=== PATIENT | female | born 1985 | race Two or more races ===

== ENCOUNTER 2023-08-23 19:44 | Emergency (ER) | payer MEDICAID, OTHER ==
[~2023-08-23] VITALS: Ht 157.5 cm; Wt 57.0 kg
[2023-08-23] MEDS: ONDANSETRON HCL 4 MG/2 ML VIAL IV ONE (20:00)
[2023-08-23 20:14] LABS: Basophils # (auto) 0.1 10 ^3/uL (0-0.2); Basophils % (auto) 0.6 % (0.0-2.0); Eosinophils # (auto) 0.2 10 ^3/uL (0-0.8); Eosinophils % (auto) 1.7 % (0.0-7.0); Hematocrit 36.8 % (36.0-46.0); Hemoglobin 12.5 g/dL (12.2-16.2); Lymphocytes # (auto) 2.5 10 ^3/uL (0.4-5.4); Lymphocytes % (auto) 21.8 % (10.0-50.0); Mean Corpuscular Hemoglobin 31.3 pg (28.0-32.0); Mean Corpuscular Hgb Conc. 33.9 g/dL (32.0-36.0); Mean Corpuscular Volume 92.3 fL (80.0-100.0); Monocytes % (auto) 8.5 % (0.0-12.0); Neutrophils # (auto) 7.6 10 ^3/uL (1.6-8.6); Neutrophils % (auto) 67.4 % (37.0-80.0); Red Blood Cells 3.99 10^6/uL (4.0-5.20); Red Cell Distribution Width 13.1 % (11.8-14.3); White Blood Cell 11.3 10^3/uL (4.4-10.8)
[2023-08-23 20:35] LABS: Alanine Aminotransferase 19 U/L (7-40); Alkaline Phosphatase 69 U/L (46-116); Aspartate Aminotransferase 12 U/L (13-40); Calcium 9.9 mg/dL (8.5-10.1); Carbon Dioxide 25 mmol/L (20-30); Chloride 106 mmol/L (98-107)
[2023-08-23 20:36] LABS: Albumin 4.5 g/dL (3.2-4.8); Anion Gap 7 (5-15); BUN/Creatinine Ratio 21.1 (10.0-20.0); Bilirubin, Total 0.2 mg/dL (0.2-1.0); Blood Urea Nitrogen 12 mg/dL (9-23); Glucose 102 mg/dL (74-106); Potassium 4.1 mmol/L (3.5-5.1); Sodium 138 mmol/L (136-145); Total Protein 7.4 g/dL (5.7-8.2)
[2023-08-23] MEDS: KETOROLAC TROMETH 30 MG/ML 1ML VIAL IV ONE (20:37)
[2023-08-23 21:17] LABS: Urine Bacteria None Seen /hpf (None Seen)
[2023-08-23 21:29] LABS: Urine Blood 2+ /uL (Negative); Urine Clarity Clear (Clear); Urine Color Light-Yellow (Yellow); Urine Mucus FEW (None Seen); Urine Protein, UAD Negative (Negative); Urine Urobilinogen Normal (Negative); Urine WBC 2 /hpf (0 - 5); Urine pH 5.5 (5.0-9.0)
[2023-08-23 23:55] VITALS: BP 99/64; PULSE 88; RESP 18; TEMP 97.9; O2SAT 97
[2023-08-24] MEDS ORDERED: TAMS-35 PO (01:00)
[2023-08-24] MEDS ORDERED: IBUP-1456 PO (01:00)
[2023-08-24] MEDS ORDERED: ACET-1304 PO (01:00)
== END 2023-08-24 01:13 | disposition home or self-care (01) ==
LOC: EDBD 19:44 → ER 19:44
DX: N20.1 Calculus of ureter (principal); R10.2 Pelvic and perineal pain; N83.202 Unspecified ovarian cyst, left side; N83.201 Unspecified ovarian cyst, right side; R42 Dizziness and giddiness; Z32.02 Encounter for pregnancy test, result negative
CPT/HCPCS: 36415; 74176; 76856; 80053; 81001; 81025; 84702; 85025; 96374; 99285; J1885

== ENCOUNTER 2024-05-21 09:37 | Inpatient (IN) | payer MEDICAID ==
[~2024-05-21] VITALS: Ht 157.5 cm; Wt 61.5 kg
[~2024-05-21 09:37] MED LIST: ACET-1304 PO; IBUP-1456 PO; TAMS-35 PO
[2024-05-21 10:11] VITALS: PULSE 76; RESP 20; O2SAT 95
--- NOTE | 2024-05-21 10:29 | ED.PDOC ---
General HPI Comments 38 y/o F with PMHX of kidney stones, presents to the ED for CC of left flank pain. Patient states, that she has been experiencing left flank pain and pelvic pain with associated symptoms of nausea and faintness x1day. Patient relays, that she believes symptoms are in association with PMHX of kidney stones; has experienced symptoms in the past. Patient comments on current 12/19 pain. Patient denies dysuria, hematuria, vagina discharge, or back pain. No other symptoms or modifying factors at this time. Chief Complaint: Flank Pain Time Seen by MD: 10:15 Reviewed notes: Nurses Notes, Medications, Allergies Allergies: Coded Allergies: NO KNOWN ALLERGIES (Unverified , 08/23/23) Home Meds Active Scripts Tamsulosin Hcl (Flomax) 0.4 Mg Cap, 1 CAP PO DAILY for 14 Days, #14 CAP 11 Refills Prov:JULIET OMER MD 08/24/23 Ibuprofen (Ibuprofen) 800 Mg Tab, 1 TAB PO Q8HP PRN, #30 TAB 1 Refill Prov:JULIET OMER MD 08/24/23 Acetaminophen (Tylenol Extra Strength) 500 Mg Tab, 1000 MG PO Q6HP PRN, #30 TAB Prov:JULIET OMER MD 08/24/23 Information Source: Patient Mode of Arrival: Ambulatory Severity: Moderate Timing: Days Duration: Since onset Prehospital treatment: None Onset: Spontaneous Symptoms: None History of: Kidney stone Location: (L)Flank Modifying factors: None associated signs and symptoms: Nausea Past Medical History PAST MEDICAL HISTORY: Kidney Stones Surgical History: Denies all surgeries LAUNDRY AID History: No Pertinent LAUNDRY AID History Family History Family History: Unknown Social History Smoker: Non-Smoker Alcohol: Denies ETOH Use Drugs: Denies Drug Use Lives In: Home Constitutional: denies: chills, diaphoresis, fatigue, fever, malaise, sweats, weakness, others EENTM: denies: blurred vision, double vision, ear bleeding, ear discharge, ear drainage, ear pain, ear ringing, eye pain, eye redness, hearing loss, mouth pain, mouth swelling, nasal discharge, nose bleeding, nose congestion, nose pain, photophobia, tearing, throat pain, throat swelling, voice changes, others Respiratory: denies: cough, hemoptysis, orthopnea, SOB at rest, shortness of breath, SOB with excertion, stridor, wheezing, others Cardiovascular: denies: chest pain, dizzy spells, diaphoresis, Dyspnea on exertion, edema, irregular heart beat, left arm pain, lightheadedness, palpitations, PND, syncope, others Gastrointestinal: reports: nausea; denies: abdomen distended, abdominal pain, blood streaked bowels, constipated, diarrhea, dysphagia, difficulty swallowing, hematemesis, melena, poor appetite, poor fluid intake, rectal bleeding, rectal pain, vomiting, others Genitourinary: reports: flank pain, others (pelvic pain); denies: abnormal vagina bleeding, burning, dyspareunia, dysuria, frequency, hematuria, incontinence, pain, , vagina discharge, urgency Neurological: reports: fainting; denies: dizziness, headache, left sided numbness, left sided weakness, numbness, paresthesia, pre-existing deficit, right sided numbness, right sided weakness, seizure, speech problems, tingling, tremors, weakness, others Musculoskeletal: denies: back pain, gout, joint pain, joint swelling, muscle pain, muscle stiffness, neck pain, others Integumetry: denies: bruises, change in color, change in hair/nails, dryness, laceration, lesions, lumps, rash, wounds, others Allergic/Immunocompromised: denies: Difficulty Healing, Frequent Infections, Hives, Itching, others Hematologic/Lymphatic: denies: anemia, blood clots, easy bleeding, easy bruising, swollen glands, others Endocrine: denies: excessive hunger, excessive sweating, excessive thirst, excessive urination, flushing, intolerance to cold, intolerance to heat, unexplained weight gain, unexplained weight loss, others Psychiatric: denies: anxiety, bipolar disorder, depression, hopeless, panic disorder, schizophrenia, sleepless, suicidal, others All Other Systems: Reviewed and Negative Physical Exam General Appearance: Moderate Distress HEENT: Normal ENT Inspection, Pharynx Normal, TMs Normal Neck: Full Range of Motion, Non-Tender, Normal, Normal Inspection Respiratory: Chest Non-Tender, Lungs Clear, No Accessory Muscle Use, No Respiratory Distress, Normal Breath Sounds Cardiovascular: No Edema, No JVD, No Murmur, No Gallop, Normal Peripheral Pulses, Regular Rate/Rhythm Breast Exam: Deferred Gastrointestinal: No Organomegaly, Non Tender, No Pulsatile Mass, Normal Bowel Sounds, Soft Genitalia: Deferred Pelvic: Deferred Rectal: Deferred Extremities: No calf tenderness, Normal capillary refill, No pedal edema Musculoskeletal : Location: Left Extremity Location: Back Apperance: Tenderness: Moderate Neurologic: Alert, 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 Was a procedure done?: No Differential Diagnosis Kidney stone (Female): Cholelithiasis, Pyelonephritis, Urinary obstruction X-Ray, Labs, Meds, VS Vital Signs Date Time Temp Pulse Resp B/P (MAP) Pulse Ox O2 Delivery O2 Flow Rate FiO2 05/21/24 11:26 72 15 115/65 (82) 99 05/21/24 11:22 72 14 115/65 05/21/24 10:35 78 18 129/73 05/21/24 10:11 76 20 95 Room Air* 0 21 05/21/24 10:09 98.0 78 18 129/73 (91) 98 98.0 05/21/24 09:50 98.1 75 20 141/81 (101) 100 Lab Test 05/21/24 10:21 05/21/24 09:54 Range/Units White Blood Count 10.6 4.4-10.8 10^3/uL Red Blood Count 4.33 4.0-5.20 10^6/uL Hemoglobin 13.5 12.2-16.2 g/dL Hematocrit 40.2 36.0-46.0 % Mean Corpuscular Volume 92.9 80.0-100.0 fL Mean Corpuscular Hemoglobin 31.3 28.0-32.0 pg Mean Corpuscular Hemoglobin Concent 33.7 32.0-36.0 g/dL Red Cell Distribution Width 13.0 11.8-14.3 % Platelet Count 273 140-450 10^3/uL Mean Platelet Volume 9.2 6.9-10.8 fL Neutrophils (%) (Auto) 66.1 37.0-80.0 % Lymphocytes (%) (Auto) 25.6 10.0-50.0 % Monocytes (%) (Auto) 5.8 0.0-12.0 % Eosinophils (%) (Auto) 2.0 0.0-7.0 % Basophils (%) (Auto) 0.5 0.0-2.0 % Neutrophils # (Auto) 7.0 1.6-8.6 10 ^3/uL Lymphocytes # (Auto) 2.7 0.4-5.4 10 ^3/uL Monocytes # (Auto) 0.6 0-1.3 10 ^3/uL Eosinophils # (Auto) 0.2 0-0.8 10 ^3/uL Basophils # (Auto) 0.1 0-0.2 10 ^3/uL Nucleated Red Blood Cells 0.0 % Sodium Level 137 136-145 mmol/L Potassium Level 4.1 3.5-5.1 mmol/L Chloride Level 103 98-107 mmol/L Carbon Dioxide Level 24 20-31 mmol/L Anion Gap 10 5-15 Blood Urea Nitrogen 10 9-23 mg/dL Creatinine 0.66 0.550-1.02 mg/dL Glomerular Filtration Rate Calc 117 >90 mL/min BUN/Creatinine Ratio 15.2 10.0-20.0 Serum Glucose 97 74-106 mg/dL Calcium Level 10.1 8.7-10.4 mg/dL Urine Color Yellow Yellow Urine Clarity Turbid H Clear Urine pH 5.0 5.0-9.0 Urine Specific [place] 1.025 1.001-1.035 Urine Protein Trace H Negative Urine Ketones Negative Negative Urine Blood 3+ H Negative /uL Urine Nitrite Negative Negative Urine Bilirubin Negative Negative Urine Urobilinogen Normal Negative mg/dL Urine Leukocyte Esterase Trace Negative /uL Urine RBC 188 0 - 4 /hpf Urine Microscopic WBC 11 H 0-5 /HPF Urine Squamous Epithelial Cells Few <5 /hpf Urine Bacteria Few H None Seen /hpf Urine Mucus Few None Seen Urine Glucose Normal Normal mg/dL Current Medications Medications (Trade) Dose Ordered Sig/Edson Route Start Time Stop Time Status Last Admin Ondansetron HCl (Zofran) 4 mg ONCE ONCE IV 05/21/24 10:15 05/21/24 10:17 DC 05/21/24 10:34 Sodium Chloride 1,000 ml @ 1,000 mls/hr Q1H ONCE IVB 05/21/24 10:15 05/21/24 11:14 DC 05/21/24 10:30 Morphine Sulfate 4 mg ONCE ONCE IV 05/21/24 10:15 05/21/24 10:17 DC 05/21/24 10:35 Ketorolac Tromethamine (Toradol Injection) 30 mg ONCE ONCE IV 05/21/24 10:15 05/21/24 10:17 DC 05/21/24 10:34 CT ABD PEL: IMPRESSION: 1. 5 mm calculus in the distal left ureter. There is mild left hydroureteron ephrosis. 2. There are additional multiple small bilateral renal calculi measuring up 5 mm. There is no right renal hydronephrosis. HS:Y ATED BY: JIGNESH DSOUZA MD DICTATED DATE/TIME: 05/21/241244 SIGNED BY: JIGNESH DSOUZA MD SIGNED DATE/TIME: 05/21/241244 CC: The patient was given morphine 4 mg IV push The patient was given a 1 L bolus of normal saline The patient was given Toradol 30 mg IV push The patient was given Zofran 4 mg IV push The urine test is positive for blood but no infection at this time The CBC and chemistry panel are within normal limits A urology consult will be obtained The patient was being admitted at this time. Images Reviewed?: Images reviewed and evaluated by me Time of 1ST Reevaluation: 10:45 Reevaluation 1ST: Unchanged Patient Education/Counseling: Diagnosis, Treatment Family Education/Counseling: No Family Present Departure 1 Departure Time of Disposition: 14:55 Impression: Primary Impression: Ureterolithiasis Additional Impression: Intractable abdominal pain Disposition: ADMITTED INPATIENT Admit to: Med Surg Condition: Fair Critical Care Note Critical Care Time?: No Stability Stability form required: Yes Unstable for transfer: ED Physician Assesment (Clinical assesment) Heart Score Heart Score: Heart Score Response (Comments) Value History N/A 0 EKG N/A 0 Age N/A 0 Risk Factors N/A 0 Troponin N/A 0 Total 0 I personally scribed for BONNIE DENISE MD ([email or web address]) on 05/21/24 at 10:29. Electronically submitted by Judi Cr ([email or web address]). I personally scribed for BONNIE DENISE MD ([email or web address]) on 05/21/24 at 12:53. Electronically submitted by Judi Cr ([email or web address]). BONNIE DENISE MD May 21, 2024 10:29
[2024-05-21 10:30] LABS: Urine Bacteria FEW /hpf (None Seen); Urine Blood 3+ /uL (Negative); Urine Clarity Turbid (Clear); Urine Color Yellow (Yellow); Urine Mucus FEW (None Seen); Urine Protein, UAD TRACE (Negative); Urine Specific Gravity 1.025 (1.001-1.035); Urine Squamous Epithelial Cell FEW /hpf (<5); Urine Urobilinogen Normal (Negative); Urine WBC 11 /HPF (0-5)
[2024-05-21] MEDS: SODIUM CHLORIDE 0.9% 1,000 ML IVB ONE (10:30)
[2024-05-21] MEDS: ONDANSETRON HCL 4 MG/2 ML VIAL IV ONE (10:34)
[2024-05-21] MEDS: KETOROLAC TROMETH 30 MG/ML 1ML VIAL IV ONE (10:34)
[2024-05-21] MEDS: MORPHINE SULFATE 4 MG/ML SYR/VIAL IV ONE (10:35)
[2024-05-21 10:40] LABS: Basophils # (auto) 0.1 10 ^3/uL (0-0.2); Basophils % (auto) 0.5 % (0.0-2.0); Eosinophils # (auto) 0.2 10 ^3/uL (0-0.8); Hematocrit 40.2 % (36.0-46.0); Hemoglobin 13.5 g/dL (12.2-16.2); Lymphocytes # (auto) 2.7 10 ^3/uL (0.4-5.4); Lymphocytes % (auto) 25.6 % (10.0-50.0); Mean Corpuscular Hemoglobin 31.3 pg (28.0-32.0); Mean Corpuscular Hgb Conc. 33.7 g/dL (32.0-36.0); Mean Corpuscular Volume 92.9 fL (80.0-100.0); Monocytes # (auto) 0.6 10 ^3/uL (0-1.3); Monocytes % (auto) 5.8 % (0.0-12.0); Neutrophils % (auto) 66.1 % (37.0-80.0); Platelet Count (auto) 273 10^3/uL (140-450); Red Blood Cells 4.33 10^6/uL (4.0-5.20); White Blood Cell 10.6 10^3/uL (4.4-10.8)
[2024-05-21 10:58] LABS: Chloride 103 mmol/L (98-107); Potassium 4.1 mmol/L (3.5-5.1); Sodium 137 mmol/L (136-145)
[2024-05-21 10:59] LABS: Anion Gap 10 (5-15); Calcium 10.1 mg/dL (8.7-10.4); Carbon Dioxide 24 mmol/L (20-31)
[2024-05-21 11:04] LABS: BUN/Creatinine Ratio 15.2 (10.0-20.0); Blood Urea Nitrogen 10 mg/dL (9-23); Glucose 97 mg/dL (74-106)
--- NOTE | 2024-05-21 12:47 | DVH ---
CT ABDOMEN AND PELVIS WITHOUT CONTRAST CLINICAL HISTORY: left flank pain TECHNIQUE: Multiple contiguous axial images of the abdomen and pelvis without intravenous contrast. T he images were reformatted degenerate coronal and sagittal reconstructions. All CT scans at this medical facility are performed using dose modulation techniques as appropriate t o a performed exam including the following:Automated exposure control was utilized; adjustment of the MA and/or KV according to patient size; and use of iterative reconstruction technique. Radiation Dose Information: CT Dose: CTDI volume is 6 mGy. Dose-length product is 292 mGy*cm Comparison: CT CT AB PEL WO CON-NO ORAL OR IV on DOS: 08/23/23 FINDINGS: Evaluation of the abdomen and pelvis is limited without intravenous contrast. There is a 5 mm calculus in the distal left ureter. There is mild left hydroureteronephrosis. There are additional multiple small bilateral renal calculi, the largest in the left upper pole measuring 5 mm. There is no right renal hydronephrosis. The liver, gallbladder, pancreas, adrenal glands, and spleen appear within normal limits. There is no gross evidence of abdominal lymphadenopathy. There is no free fluid or free air. The stomach grossly appears unremarkable. The small and large bowel loops demonstrate normal caliber . The appendix is not seen in the right lower quadrant abdomen. There are no secondary signs of acut e appendicitis. The abdominal aorta and IVC appear within normal limits. The bladder appears unremarkable for the degree of distention. Pelvic organ appears within normal rose its. There is no gross evidence of a pelvic mass. There is no free fluid collection. Lung bases are clear. There is no acute osseous abnormality. IMPRESSION: 1. 5 mm calculus in the distal left ureter. There is mild left hydroureteronephrosis. 2. There are additional multiple small bilateral renal calculi measuring up 5 mm. There is no right renal hydronephrosis. HS:Y
--- NOTE | 2024-05-21 14:34 | DVHINCON2 ---
Allergies: Coded Allergies: NO KNOWN ALLERGIES (Unverified , 08/23/23) Home Meds Active Scripts Tamsulosin Hcl (Flomax) 0.4 Mg Cap, 1 CAP PO DAILY for 14 Days, #14 CAP 11 Refills Prov:JULIET OMER MD 08/24/23 Ibuprofen (Ibuprofen) 800 Mg Tab, 1 TAB PO Q8HP PRN, #30 TAB 1 Refill Prov:JULIET OMER MD 08/24/23 Acetaminophen (Tylenol Extra Strength) 500 Mg Tab, 1000 MG PO Q6HP PRN, #30 TAB Prov:JULIET OMER MD 08/24/23 Vital Signs Vital Signs Date Time Temp Pulse Resp B/P (MAP) Pulse Ox O2 Delivery O2 Flow Rate FiO2 05/21/24 11:26 72 15 115/65 (82) 99 05/21/24 10:11 Room Air* 0 21 05/21/24 10:09 98.0 98.0 Labs/Diagnostic Data Labs Test 05/21/24 10:21 05/21/24 09:54 Range/Units White Blood Count 10.6 4.4-10.8 10^3/uL Red Blood Count 4.33 4.0-5.20 10^6/uL Hemoglobin 13.5 12.2-16.2 g/dL Hematocrit 40.2 36.0-46.0 % Mean Corpuscular Volume 92.9 80.0-100.0 fL Mean Corpuscular Hemoglobin 31.3 28.0-32.0 pg Mean Corpuscular Hemoglobin Concent 33.7 32.0-36.0 g/dL Red Cell Distribution Width 13.0 11.8-14.3 % Platelet Count 273 140-450 10^3/uL Mean Platelet Volume 9.2 6.9-10.8 fL Neutrophils (%) (Auto) 66.1 37.0-80.0 % Lymphocytes (%) (Auto) 25.6 10.0-50.0 % Monocytes (%) (Auto) 5.8 0.0-12.0 % Eosinophils (%) (Auto) 2.0 0.0-7.0 % Basophils (%) (Auto) 0.5 0.0-2.0 % Neutrophils # (Auto) 7.0 1.6-8.6 10 ^3/uL Lymphocytes # (Auto) 2.7 0.4-5.4 10 ^3/uL Monocytes # (Auto) 0.6 0-1.3 10 ^3/uL Eosinophils # (Auto) 0.2 0-0.8 10 ^3/uL Basophils # (Auto) 0.1 0-0.2 10 ^3/uL Nucleated Red Blood Cells 0.0 % Sodium Level 137 136-145 mmol/L Potassium Level 4.1 3.5-5.1 mmol/L Chloride Level 103 98-107 mmol/L Carbon Dioxide Level 24 20-31 mmol/L Anion Gap 10 5-15 Blood Urea Nitrogen 10 9-23 mg/dL Creatinine 0.66 0.550-1.02 mg/dL Glomerular Filtration Rate Calc 117 >90 mL/min BUN/Creatinine Ratio 15.2 10.0-20.0 Serum Glucose 97 74-106 mg/dL Calcium Level 10.1 8.7-10.4 mg/dL Urine Color Yellow Yellow Urine Clarity Turbid H Clear Urine pH 5.0 5.0-9.0 Urine Specific [place] 1.025 1.001-1.035 Urine Protein Trace H Negative Urine Ketones Negative Negative Urine Blood 3+ H Negative /uL Urine Nitrite Negative Negative Urine Bilirubin Negative Negative Urine Urobilinogen Normal Negative mg/dL Urine Leukocyte Esterase Trace Negative /uL Urine RBC 188 0 - 4 /hpf Urine Microscopic WBC 11 H 0-5 /HPF Urine Squamous Epithelial Cells Few <5 /hpf Urine Bacteria Few H None Seen /hpf Urine Mucus Few None Seen Urine Glucose Normal Normal mg/dL LEWIS FAUSTIN MD May 21, 2024 14:34
[2024-05-21] MEDS ORDERED: ONDANSETRON HCL 4 MG/2 ML VIAL IV PRN (14:45)
[2024-05-21] MEDS ORDERED: ACETAMINOPHEN 325 MG TAB PO PRN (14:45)
[2024-05-21] MEDS ORDERED: MORPHINE SULFATE INJ 2 MG/ml SYRG IV PRN (14:45)
[2024-05-21] MEDS ORDERED: HYDROcodone-ACET 5/325MG TAB PO PRN (14:45)
--- NOTE | 2024-05-21 14:47 | DVHHP2 ---
History of Present Illness Reason for Visit: Left flank pain since yesterday. History of Present Illness 38-year-old female with a known history of previous kidney stones presented to the hospital with a left flank pain found to have left obstructive uropathy with a 5 mm stone in the left distal ureter with mild hydronephrosis. Patient was denies any fevers chills. Patient does have known history of previous renal stones which did not require any intervention. Patient was denies any dysuria hematuria. Renal/: Other (Kidney stones.) Past Surgical History: None Family History: None Smoke: No ALCOHOL: none Drugs: None Review of Systems Review of Systems Twelve review of system were negative except mentioned above. 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 Labs/Xrays Labs Test 05/21/24 10:21 05/21/24 09:54 Range/Units White Blood Count 10.6 4.4-10.8 10^3/uL Red Blood Count 4.33 4.0-5.20 10^6/uL Hemoglobin 13.5 12.2-16.2 g/dL Hematocrit 40.2 36.0-46.0 % Mean Corpuscular Volume 92.9 80.0-100.0 fL Mean Corpuscular Hemoglobin 31.3 28.0-32.0 pg Mean Corpuscular Hemoglobin Concent 33.7 32.0-36.0 g/dL Red Cell Distribution Width 13.0 11.8-14.3 % Platelet Count 273 140-450 10^3/uL Mean Platelet Volume 9.2 6.9-10.8 fL Neutrophils (%) (Auto) 66.1 37.0-80.0 % Lymphocytes (%) (Auto) 25.6 10.0-50.0 % Monocytes (%) (Auto) 5.8 0.0-12.0 % Eosinophils (%) (Auto) 2.0 0.0-7.0 % Basophils (%) (Auto) 0.5 0.0-2.0 % Neutrophils # (Auto) 7.0 1.6-8.6 10 ^3/uL Lymphocytes # (Auto) 2.7 0.4-5.4 10 ^3/uL Monocytes # (Auto) 0.6 0-1.3 10 ^3/uL Eosinophils # (Auto) 0.2 0-0.8 10 ^3/uL Basophils # (Auto) 0.1 0-0.2 10 ^3/uL Nucleated Red Blood Cells 0.0 % Sodium Level 137 136-145 mmol/L Potassium Level 4.1 3.5-5.1 mmol/L Chloride Level 103 98-107 mmol/L Carbon Dioxide Level 24 20-31 mmol/L Anion Gap 10 5-15 Blood Urea Nitrogen 10 9-23 mg/dL Creatinine 0.66 0.550-1.02 mg/dL Glomerular Filtration Rate Calc 117 >90 mL/min BUN/Creatinine Ratio 15.2 10.0-20.0 Serum Glucose 97 74-106 mg/dL Calcium Level 10.1 8.7-10.4 mg/dL Urine Color Yellow Yellow Urine Clarity Turbid H Clear Urine pH 5.0 5.0-9.0 Urine Specific [place] 1.025 1.001-1.035 Urine Protein Trace H Negative Urine Ketones Negative Negative Urine Blood 3+ H Negative /uL Urine Nitrite Negative Negative Urine Bilirubin Negative Negative Urine Urobilinogen Normal Negative mg/dL Urine Leukocyte Esterase Trace Negative /uL Urine RBC 188 0 - 4 /hpf Urine Microscopic WBC 11 H 0-5 /HPF Urine Squamous Epithelial Cells Few <5 /hpf Urine Bacteria Few H None Seen /hpf Urine Mucus Few None Seen Urine Glucose Normal Normal mg/dL Assessment/Plan Assessment/Plan 38-year-old female with a known history of kidney stones presented to the hospital with left flank pain found to have 1. Left obstructive uropathy with 5 mm distal ureter stone with mild hydronephrosis 2. Acute cystitis with hematuria 3. Bilateral renal stones with a previous history of kidney stones -full liquid diet, IV fluids, add Flomax, urology consultation.- Follow up urine culture, IV antibiotic. Plan discussed with: Patient My Orders Orders - LEWIS FAUSTIN MD Procedure Category Date Status Time Admit ADMIT 05/21/24 Transmitted 14:37 Code Status CODE 05/21/24 Transmitted 14:37 Full Liq Diet DIET 05/21/24 Transmitted Dinner Sodium Chloride 0.9% PHA 05/21/24 Logged 14:45 Hydrocodone-Acet PHA 05/21/24 Logged 5/325mg Tab ([place] 14:45 Ondansetron Hcl PHA 05/21/24 Logged (Zofran) 14:45 Complete Blood Count LAB 05/22/24 Verified 04:00 Comprehensive LAB 05/22/24 Verified Metabolic Panel 04:00 Condition: Stable TALI 05/21/24 In Process 14:37 Acetaminophen Tablet PHA 05/21/24 Logged (Tylenol Tablet) 14:45 Morphine Sulfate PHA 05/21/24 Logged Injection 14:45 Tamsulosin PHA 05/21/24 Logged Hydrochloride (Flomax) 18:00 Ceftriaxone 1gm/50ml PHA 05/22/24 Logged D5w (Rocephin) 09:00 * Urology Consult CONS 05/21/24 Transmitted 14:41 Date of Service: May 21, 2024 Billing Provider: LEWIS FAUSTIN MD Common Visit Codes: NOT BILLABLE LEWIS FAUSTIN MD May 21, 2024 14:47
[2024-05-21 17:03] VITALS: BP 91/54; PULSE 75; TEMP 98.3; O2SAT 98
[2024-05-21] MEDS: SODIUM CHLORIDE 0.9% 1,000 ML IV SCH (17:06)
[2024-05-21] MEDS: TAMSULOSIN HYDROCHLORIDE 0.4 MG CAP PO SCH (17:19)
--- NOTE | 2024-05-21 18:32 | DVHINCON2 ---
Date of service: May 21, 2024 Referring Physician Hospitalist Reason for Consultation Left flank pain History of Present Illness 38 y/o F with PMHX of kidney stones, presents to the ED for CC of left flank pain. Patient states, that she has been experiencing left flank pain and pelvic pain with associated symptoms of nausea and faintness x1day. Patient relays, that she believes symptoms are in association with PMHX of kidney stones; has experienced symptoms in the past. Patient comments on current 12/19 pain. Patient denies dysuria, hematuria, vagina discharge, or back pain. No other symptoms or modifying factors at this time. Chief Complaint: Flank Pain Reviewed notes: Nurses Notes, Medications, Allergies Allergies: Coded Allergies: NO KNOWN ALLERGIES (Unverified , 08/23/23) Home Meds Active Scripts Tamsulosin Hcl (Flomax) 0.4 Mg Cap, 1 CAP PO DAILY for 14 Days, #14 CAP 11 Refills Prov:JULIET OMER MD 08/24/23 Ibuprofen (Ibuprofen) 800 Mg Tab, 1 TAB PO Q8HP PRN, #30 TAB 1 Refill Prov:JULIET OMER MD 08/24/23 Acetaminophen (Tylenol Extra Strength) 500 Mg Tab, 1000 MG PO Q6HP PRN, #30 TAB Prov:JULIET OMER MD 08/24/23 Information Source: Patient Mode of Arrival: Ambulatory Severity: Moderate Timing: Days Duration: Since onset Prehospital treatment: None Onset: Spontaneous Symptoms: None History of: Kidney stone Location: (L)Flank Modifying factors: None associated signs and symptoms: Nausea Past Medical History Kidney Stones Past Surgical History Denies all surgeries SENIOR JAVA ARCHITECT History: No Pertinent SENIOR JAVA ARCHITECT History Allergies: Coded Allergies: NO KNOWN ALLERGIES (Unverified , 08/23/23) Home Meds Active Scripts Tamsulosin Hcl (Flomax) 0.4 Mg Cap, 1 CAP PO DAILY for 14 Days, #14 CAP 11 Refills Prov:JULIET OMER MD 08/24/23 Ibuprofen (Ibuprofen) 800 Mg Tab, 1 TAB PO Q8HP PRN, #30 TAB 1 Refill Prov:JULIET OMER MD 08/24/23 Acetaminophen (Tylenol Extra Strength) 500 Mg Tab, 1000 MG PO Q6HP PRN, #30 TAB Prov:JULIET OMER MD 08/24/23 Current Medications Current Medications Medications (Trade) Dose Ordered Sig/Edson Route PRN Reason Start Time Stop Time Status Last Admin Sodium Chloride 1,000 ml @ 120 mls/hr Q8H20M IV 05/21/24 14:45 05/21/24 17:06 Acetaminophen/ Hydrocodone Bitart ([place] 5/325MG Tab) 1 tab Q4HP PRN PO MODERATE PAIN (4-6 PAIN SCALE) 05/21/24 14:45 Ondansetron HCl (Zofran) 4 mg Q4HP PRN IV NAUSEA / VOMITING 05/21/24 14:45 Acetaminophen (Tylenol Tablet) 650 mg Q6HP PRN PO PAIN SCALE 1-3 OR TEMP>100.4 05/21/24 14:45 Morphine Sulfate 2 mg Q4HPRN PRN IV SEVERE PAIN (7-10 PAIN SCALE) 05/21/24 14:45 Tamsulosin HCl (Flomax) 0.4 mg QPM PO 05/21/24 18:00 05/21/24 17:19 Ceftriaxone Sodium 50 ml @ 100 mls/hr DAILY@09 IV 05/22/24 09:00 Review of Systems Constitutional: denies: chills, diaphoresis, fatigue, fever, malaise, sweats, weakness, others EENTM: denies: blurred vision, double vision, ear bleeding, ear discharge, ear drainage, ear pain, ear ringing, eye pain, eye redness, hearing loss, mouth pain, mouth swelling, nasal discharge, nose bleeding, nose congestion, nose pain, photophobia, tearing, throat pain, throat swelling, voice changes, others Respiratory: denies: cough, hemoptysis, orthopnea, SOB at rest, shortness of breath, SOB with excertion, stridor, wheezing, others Cardiovascular: denies: chest pain, dizzy spells, diaphoresis, Dyspnea on exertion, edema, irregular heart beat, left arm pain, lightheadedness, palpitations, PND, syncope, others Gastrointestinal: reports: nausea; denies: abdomen distended, abdominal pain, blood streaked bowels, constipated, diarrhea, dysphagia, difficulty swallowing, hematemesis, melena, poor appetite, poor fluid intake, rectal bleeding, rectal pain, vomiting, others Genitourinary: reports: flank pain, others (pelvic pain); denies: abnormal vagina bleeding, burning, dyspareunia, dysuria, frequency, hematuria, incontinence, pain, , vagina discharge, urgency Neurological: reports: fainting; denies: dizziness, headache, left sided numbness, left sided weakness, numbness, paresthesia, pre-existing deficit, right sided numbness, right sided weakness, seizure, speech problems, tingling, tremors, weakness, others Musculoskeletal: denies: back pain, gout, joint pain, joint swelling, muscle pain, muscle stiffness, neck pain, others Integumetry: denies: bruises, change in color, change in hair/nails, dryness, laceration, lesions, lumps, rash, wounds, others Allergic/Immunocompromised: denies: Difficulty Healing, Frequent Infections, Hives, Itching, others Hematologic/Lymphatic: denies: anemia, blood clots, easy bleeding, easy bruising, swollen glands, others Endocrine: denies: excessive hunger, excessive sweating, excessive thirst, excessive urination, flushing, intolerance to cold, intolerance to heat, unexplained weight gain, unexplained weight loss, others Psychiatric: denies: anxiety, bipolar disorder, depression, hopeless, panic disorder, schizophrenia, sleepless, suicidal, others All Other Systems: Reviewed and Negative Vital Signs Vital Signs Date Time Temp Pulse Resp B/P (MAP) Pulse Ox O2 Delivery O2 Flow Rate FiO2 05/21/24 17:03 98.3 75 91/54 (66) 98 98.3 05/21/24 11:26 15 05/21/24 10:11 Room Air* 0 21 Physical Exam General Appearance: Moderate Distress HEENT: Normal ENT Inspection, Pharynx Normal, TMs Normal Neck: Full Range of Motion, Non-Tender, Normal, Normal Inspection Respiratory: Chest Non-Tender, Lungs Clear, No Accessory Muscle Use, No Respiratory Distress, Normal Breath Sounds Cardiovascular: No Edema, No JVD, No Murmur, No Gallop, Normal Peripheral Pulses, Regular Rate/Rhythm Breast Exam: Deferred Gastrointestinal: No Organomegaly, Non Tender, No Pulsatile Mass, Normal Bowel Sounds, Soft Genitalia: Deferred Extremities: No calf tenderness, Normal capillary refill, No pedal edema Musculoskeletal : Location: Left Extremity Location: Back Apperance: Tenderness: Moderate Neurologic: Alert, security tech II-XII nml as Tested, No Motor Deficits, Normal Affect, Normal Mood, No Sensory Deficits Cerebellar Function: Normal Reflexes: Normal Skin: Dry, Normal Color, Warm Lymphatic: No Adenopathy Labs/Diagnostic Data Labs Test 05/21/24 10:21 05/21/24 09:54 Range/Units White Blood Count 10.6 4.4-10.8 10^3/uL Red Blood Count 4.33 4.0-5.20 10^6/uL Hemoglobin 13.5 12.2-16.2 g/dL Hematocrit 40.2 36.0-46.0 % Mean Corpuscular Volume 92.9 80.0-100.0 fL Mean Corpuscular Hemoglobin 31.3 28.0-32.0 pg Mean Corpuscular Hemoglobin Concent 33.7 32.0-36.0 g/dL Red Cell Distribution Width 13.0 11.8-14.3 % Platelet Count 273 140-450 10^3/uL Mean Platelet Volume 9.2 6.9-10.8 fL Neutrophils (%) (Auto) 66.1 37.0-80.0 % Lymphocytes (%) (Auto) 25.6 10.0-50.0 % Monocytes (%) (Auto) 5.8 0.0-12.0 % Eosinophils (%) (Auto) 2.0 0.0-7.0 % Basophils (%) (Auto) 0.5 0.0-2.0 % Neutrophils # (Auto) 7.0 1.6-8.6 10 ^3/uL Lymphocytes # (Auto) 2.7 0.4-5.4 10 ^3/uL Monocytes # (Auto) 0.6 0-1.3 10 ^3/uL Eosinophils # (Auto) 0.2 0-0.8 10 ^3/uL Basophils # (Auto) 0.1 0-0.2 10 ^3/uL Nucleated Red Blood Cells 0.0 % Sodium Level 137 136-145 mmol/L Potassium Level 4.1 3.5-5.1 mmol/L Chloride Level 103 98-107 mmol/L Carbon Dioxide Level 24 20-31 mmol/L Anion Gap 10 5-15 Blood Urea Nitrogen 10 9-23 mg/dL Creatinine 0.66 0.550-1.02 mg/dL Glomerular Filtration Rate Calc 117 >90 mL/min BUN/Creatinine Ratio 15.2 10.0-20.0 Serum Glucose 97 74-106 mg/dL Calcium Level 10.1 8.7-10.4 mg/dL Urine Color Yellow Yellow Urine Clarity Turbid H Clear Urine pH 5.0 5.0-9.0 Urine Specific [place] 1.025 1.001-1.035 Urine Protein Trace H Negative Urine Ketones Negative Negative Urine Blood 3+ H Negative /uL Urine Nitrite Negative Negative Urine Bilirubin Negative Negative Urine Urobilinogen Normal Negative mg/dL Urine Leukocyte Esterase Trace Negative /uL Urine RBC 188 0 - 4 /hpf Urine Microscopic WBC 11 H 0-5 /HPF Urine Squamous Epithelial Cells Few <5 /hpf Urine Bacteria Few H None Seen /hpf Urine Mucus Few None Seen Urine Glucose Normal Normal mg/dL PATIENT: KEENAN GOLDBERGCCT: [id number] UNIT: [id number] : 1985 LOC: ER ROOM / BED: / AGE / SEX: 38 / F ADM STATUS: REG ER SERVICE 1015 ORDERING PHYSICIAN: BONNIE DENISE MD PROCEDURE(s): ABPL - CT AB PEL WO CON-NO ORAL OR IV REASON: left flank pain ORDER NUMBER(s): [id number], ACCESSION NUMBER(s): [id number] CT ABDOMEN AND PELVIS WITHOUT CONTRAST CLINICAL HISTORY: left flank pain TECHNIQUE: Multiple contiguous axial images of the abdomen and pelvis without intravenous contrast. The images were reformatted degenerate coronal and sagittal reconstructions. All CT scans at this medical facility are performed using dose modulation techniques as appropriate to a performed exam including the following:Automated exposure control was utilized; adjustment of the MA and/or KV according to patient size; and use of iterative reconstruction technique. Radiation Dose Information: CT Dose: CTDI volume is 6 mGy. Dose-length product is 292 mGy*cm Comparison: CT CT AB PEL WO CON-NO ORAL OR IV on DOS: 08/23/23 FINDINGS: Evaluation of the abdomen and pelvis is limited without intravenous contrast. There is a 5 mm calculus in the distal left ureter. There is mild left hydroureteronephrosis. There are additional multiple small bilateral renal calculi, the largest in the left upper pole measuring 5 mm. There is no right renal hydronephrosis. The liver, gallbladder, pancreas, adrenal glands, and spleen appear within normal limits. There is no gross evidence of abdominal lymphadenopathy. There is no free fluid or free air. The stomach grossly appears unremarkable. The small and large bowel loops demonstrate normal caliber. The appendix is not seen in the right lower quadrant abdomen. There are no secondary signs of acute appendicitis. The abdominal aorta and IVC appear within normal limits. The bladder appears unremarkable for the degree of distention. Pelvic organ appears within normal limits. There is no gross evidence of a pelvic mass. There is no free fluid collection. Lung bases are clear. There is no acute osseous abnormality. IMPRESSION: 1. 5 mm calculus in the distal left ureter. There is mild left hydroureteronephrosis. 2. There are additional multiple small bilateral renal calculi measuring up 5 mm. There is no right renal hydronephrosis. HS:Y ATED BY: JIGNESH DSOUZA MD DICTATED DATE/TIME: 05/21/24 1245 SIGNED BY: JIGNESH DSOUZA MD SIGNED DATE/TIME: 05/21/24 1245 CC: Assessment Bilateral multiple renal stones Left distal ureteral stone, 5 mm Mild left hydronephrosis Left flank pain Plan/Recommendation Expulsive measures Pain control Outpatient ESWL, possible stent TBA Plan discussed with: Patient, Other WILLIAM BUI MD May 21, 2024 18:32
[2024-05-21 19:35] VITALS: BP 110/58; PULSE 70; RESP 18; TEMP 98; O2SAT 99
[2024-05-21 19:50] VITALS: BP 105/68; PULSE 74; RESP 20; TEMP 98.5; O2SAT 98
[2024-05-21] MEDS: MANNITOL FTV 25% 12.5 GM/50 ML 50 ML IV ONE (21:00)
[2024-05-22 05:00] VITALS: BP 95/53; PULSE 84; RESP 20; TEMP 97.2; O2SAT 97
[2024-05-22 07:17] LABS: Basophils # (auto) 0.1 10 ^3/uL (0-0.2); Basophils % (auto) 0.6 % (0.0-2.0); Eosinophils # (auto) 0.3 10 ^3/uL (0-0.8); Eosinophils % (auto) 3.4 % (0.0-7.0); Hematocrit 33.5 % (36.0-46.0); Hemoglobin 11.2 g/dL (12.2-16.2); Lymphocytes # (auto) 3.2 10 ^3/uL (0.4-5.4); Lymphocytes % (auto) 36.4 % (10.0-50.0); Mean Corpuscular Hemoglobin 31.3 pg (28.0-32.0); Mean Corpuscular Hgb Conc. 33.4 g/dL (32.0-36.0); Mean Corpuscular Volume 93.6 fL (80.0-100.0); Monocytes # (auto) 0.7 10 ^3/uL (0-1.3); Monocytes % (auto) 7.5 % (0.0-12.0); Neutrophils # (auto) 4.6 10 ^3/uL (1.6-8.6); Neutrophils % (auto) 52.1 % (37.0-80.0); Nucleated Red Blood Cells % 0.2 %; Platelet Count (auto) 224 10^3/uL (140-450); Red Blood Cells 3.58 10^6/uL (4.0-5.20); Red Cell Distribution Width 12.9 % (11.8-14.3); White Blood Cell 8.9 10^3/uL (4.4-10.8)
[2024-05-22 07:29] LABS: Alanine Aminotransferase 17 U/L (7-40); Albumin 3.7 g/dL (3.2-4.8); Alkaline Phosphatase 50 U/L (46-116); Anion Gap 9 (5-15); BUN/Creatinine Ratio 15.4 (10.0-20.0); Carbon Dioxide 22 mmol/L (20-31); Glucose 94 mg/dL (74-106); Potassium 4.1 mmol/L (3.5-5.1); Sodium 141 mmol/L (136-145); Total Protein 6.1 g/dL (5.7-8.2)
[2024-05-22 07:30] LABS: Bilirubin, Total 0.5 mg/dL (0.2-1.0)
[2024-05-22 07:32] LABS: Aspartate Aminotransferase 12 U/L (13-40); Blood Urea Nitrogen 8 mg/dL (9-23); Chloride 110 mmol/L (98-107)
[2024-05-22 09:00] VITALS: BP 104/57; PULSE 73; RESP 18; TEMP 98.2; O2SAT 99
[2024-05-22] MEDS: cefTRIAXone 1GM/50ML D5W 50 ML IV SCH (11:28)
[2024-05-22 13:00] VITALS: BP 100/54; PULSE 76; RESP 18; TEMP 97.7; O2SAT 100
--- NOTE | 2024-05-22 14:50 | DVHDS2 ---
Discharge Summary Date of Admission May 21, 2024 at 14:37 Date of Discharge: May 22, 2024 Labs/Diagnostic Data: Laboratory Results Test 05/22/24 06:21 05/21/24 09:54 White Blood Count 8.9 10^3/uL (4.4-10.8) Red Blood Count 3.58 10^6/uL (4.0-5.20) Hemoglobin 11.2 g/dL (12.2-16.2) Hematocrit 33.5 % (36.0-46.0) Mean Corpuscular Volume 93.6 fL (80.0-100.0) Mean Corpuscular Hemoglobin 31.3 pg (28.0-32.0) Mean Corpuscular Hemoglobin Concent 33.4 g/dL (32.0-36.0) Red Cell Distribution Width 12.9 % (11.8-14.3) Platelet Count 224 10^3/uL (140-450) Mean Platelet Volume 9.5 fL (6.9-10.8) Neutrophils (%) (Auto) 52.1 % (37.0-80.0) Lymphocytes (%) (Auto) 36.4 % (10.0-50.0) Monocytes (%) (Auto) 7.5 % (0.0-12.0) Eosinophils (%) (Auto) 3.4 % (0.0-7.0) Basophils (%) (Auto) 0.6 % (0.0-2.0) Neutrophils # (Auto) 4.6 10 ^3/uL (1.6-8.6) Lymphocytes # (Auto) 3.2 10 ^3/uL (0.4-5.4) Monocytes # (Auto) 0.7 10 ^3/uL (0-1.3) Eosinophils # (Auto) 0.3 10 ^3/uL (0-0.8) Basophils # (Auto) 0.1 10 ^3/uL (0-0.2) Nucleated Red Blood Cells 0.2 % Sodium Level 141 mmol/L (136-145) Potassium Level 4.1 mmol/L (3.5-5.1) Chloride Level 110 mmol/L (98-107) Carbon Dioxide Level 22 mmol/L (20-31) Anion Gap 9 (5-15) Blood Urea Nitrogen 8 mg/dL (9-23) Creatinine 0.52 mg/dL (0.550-1.02) Glomerular Filtration Rate Calc 123 mL/min (>90) BUN/Creatinine Ratio 15.4 (10.0-20.0) Serum Glucose 94 mg/dL (74-106) Calcium Level 9.0 mg/dL (8.7-10.4) Total Bilirubin 0.5 mg/dL (0.2-1.0) Aspartate Amino Transferase (AST) 12 U/L (13-40) Alanine Aminotransferase (ALT) 17 U/L (7-40) Alkaline Phosphatase 50 U/L (46-116) Total Protein 6.1 g/dL (5.7-8.2) Albumin 3.7 g/dL (3.2-4.8) Urine Color Yellow (Yellow) Urine Clarity Turbid (Clear) Urine pH 5.0 (5.0-9.0) Urine Specific [place] 1.025 (1.001-1.035) Urine Protein Trace (Negative) Urine Ketones Negative (Negative) Urine Blood 3+ /uL (Negative) Urine Nitrite Negative (Negative) Urine Bilirubin Negative (Negative) Urine Urobilinogen Normal mg/dL (Negative) Urine Leukocyte Esterase Trace /uL (Negative) Urine RBC 188 /hpf (0 - 4) Urine Microscopic WBC 11 /HPF (0-5) Urine Squamous Epithelial Cells Few /hpf (<5) Urine Bacteria Few /hpf (None Seen) Urine Mucus Few (None Seen) Urine Glucose Normal mg/dL (Normal) Other Laboratory Tests 05/22/24 06:21 Brief Hx & Hospital Course: 38-year-old female with a known history of kidney stones presented to the hospital with left flank pain found to have left obstructive uropathy with a 5 mm ureter stone with mild hydronephrosis. Patient also has a acute cystitis with hematuria. Patient was treated with pain meds. Patient currently cleared by Urology to be discharged with close follow up as an outpatient. The patient was recommended to return to ER if there is any worsening pain or any concern or including fever chills are difficult urination or painful urination. Condition at Discharge: Stable Final Diagnosis/Problems List 38-year-old female with a known history of kidney stones presented to the hospital with left flank pain found to have 1. Left obstructive uropathy with 5 mm distal ureter stone with mild hydronephrosis 2. Acute cystitis with hematuria 3. Bilateral renal stones with a previous history of kidney stones Discharge Disposition: Home SNF Discharge Will this Physician continue t: No Discharge Instruct/Medications New Medications: Cephalexin Monohydrate (Cephalexin) 500 Mg Cap 1 CAP PO TID for 5 Days, #15 CAP Hydrocodone-Acetaminophen (Hydrocodone Bitartrate/AC 5-325 mg) 1 Tab Tab 1 TAB PO Q8HP PRN, #10 TAB Continued Medications: Tamsulosin Hcl (Flomax) 0.4 Mg Cap 1 CAP PO DAILY for 14 Days, #14 CAP 11 Refills Discontinued Medications: Acetaminophen (Tylenol Extra Strength) 500 Mg Tab 1000 MG PO Q6HP PRN, #30 TAB Ibuprofen (Ibuprofen) 800 Mg Tab 1 TAB PO Q8HP PRN, #30 TAB 1 Refill Discharge Statement: "Patient was advised to return to the ER or call 911 if any headaches, dizziness, shortness of breath, chest pain, abdominal pain, bleeding, fevers, or worsening of medical condition. Patient was counseled about treatment plan, medications, possible side effects, patientverbalized understanding. All questions were answered to the best of my ability. This discharge took greater then 30 minutes in planning, reviewing documentation, counseling the patient, and discussing with other team members." ASSESSMENT ASSESSMENT Assessment Date of Service: May 22, 2024 Billing Provider: LEWIS FAUSTIN MD Common Visit Codes: NOT BILLABLE LEWIS FAUSTIN MD May 22, 2024 14:50
[2024-05-22] MEDS ORDERED: HYDR-4902 PO (14:52)
[2024-05-22] MEDS ORDERED: CEPH500C PO (14:52)
[2024-05-22 16:31] VITALS: BP 100/54; PULSE 76; RESP 18; TEMP 97.7; O2SAT 100
== END 2024-05-22 17:05 | disposition home or self-care (01) | DRG 463 ==
LOC: ER 09:37 → OVERFLOW 14:37 → EAST 19:50
PROVIDERS: ADMIT Internal Medicine; ATTEND Internal Medicine
DX: N13.6 Pyonephrosis (principal); Z87.442 Personal history of urinary calculi
CPT/HCPCS: 36415; 74176; 80048; 80053; 81001; 85025; 96365; 96375; G0378; J1885; J2405

== ENCOUNTER 2025-02-16 09:30 | Emergency (ER) | payer MEDICAID ==
[~2025-02-16] VITALS: Ht 157.5 cm; Wt 57.4 kg
[~2025-02-16 09:30] MED LIST changes: -ACET-1304 PO; +CEPH500C PO; +HYDR-4902 PO; -IBUP-1456 PO
--- NOTE | 2025-02-16 10:33 | ED.PDOC ---
General HPI Comments 39 year old female presenting to the ED with chief complaint of flank pain. Patient reports that she has been experiencing right sided flank pain since today with associated mild dysuria. Patient relays that she has history of kidney stones and it feels like before. Patient denies any hematuria, fever, chills, or abdominal pain. Chief Complaint: Flank Pain Time Seen by MD: 10:18 Reviewed notes: Nurses Notes, Medications, Allergies Allergies: Coded Allergies: NO KNOWN ALLERGIES (Unverified , 08/23/23) Home Meds Active Scripts Hydrocodone-Acetaminophen (Hydrocodone Bitartrate/AC 5-325 mg) 1 Tab Tab, 1 TAB PO Q8HP PRN, #10 TAB Prov:LEWIS FAUSTIN MD 05/22/24 Cephalexin Monohydrate (Cephalexin) 500 Mg Cap, 1 CAP PO TID for 5 Days, #15 CAP Prov:LEWIS FAUSTIN MD 05/22/24 Tamsulosin Hcl (Flomax) 0.4 Mg Cap, 1 CAP PO DAILY for 14 Days, #14 CAP 11 Refills Prov:JULIET OMER MD 08/24/23 Information Source: Patient Mode of Arrival: Ambulatory Severity: Moderate Timing: Days Duration: Since onset Prehospital treatment: None Onset: Spontaneous Symptoms: None History of: Kidney stone Location: (R) Flank Modifying factors: None associated signs and symptoms: Flank Pain Past Medical History PAST MEDICAL HISTORY: Kidney Stones Surgical History: Denies all surgeries OVERNIGHT HOUSEPERSON History: No Pertinent OVERNIGHT HOUSEPERSON History Family History Family History: Reviewed,noncontributory to illness Social History Smoker: Non-Smoker Alcohol: Denies ETOH Use Drugs: Denies Drug Use Lives In: Home Constitutional: denies: chills, diaphoresis, fatigue, fever, malaise, sweats, weakness, others EENTM: denies: blurred vision, double vision, ear bleeding, ear discharge, ear drainage, ear pain, ear ringing, eye pain, eye redness, hearing loss, mouth pain, mouth swelling, nasal discharge, nose bleeding, nose congestion, nose pain, photophobia, tearing, throat pain, throat swelling, voice changes, others Respiratory: denies: cough, hemoptysis, orthopnea, SOB at rest, shortness of breath, SOB with excertion, stridor, wheezing, others Cardiovascular: denies: chest pain, dizzy spells, diaphoresis, Dyspnea on exertion, edema, irregular heart beat, left arm pain, lightheadedness, palpitations, PND, syncope, others Gastrointestinal: denies: abdomen distended, abdominal pain, blood streaked bowels, constipated, diarrhea, dysphagia, difficulty swallowing, hematemesis, melena, nausea, poor appetite, poor fluid intake, rectal bleeding, rectal pain, vomiting, others Genitourinary: reports: dysuria, flank pain; denies: abnormal vagina bleeding, burning, dyspareunia, frequency, hematuria, incontinence, pain, , vagina discharge, urgency, others Neurological: denies: dizziness, fainting, headache, left sided numbness, left sided weakness, numbness, paresthesia, pre-existing deficit, right sided numbness, right sided weakness, seizure, speech problems, tingling, tremors, weakness, others Musculoskeletal: denies: back pain, gout, joint pain, joint swelling, muscle pain, muscle stiffness, neck pain, others Integumetry: denies: bruises, change in color, change in hair/nails, dryness, laceration, lesions, lumps, rash, wounds, others Allergic/Immunocompromised: denies: Difficulty Healing, Frequent Infections, Hives, Itching, others Hematologic/Lymphatic: denies: anemia, blood clots, easy bleeding, easy bruising, swollen glands, others Endocrine: denies: excessive hunger, excessive sweating, excessive thirst, excessive urination, flushing, intolerance to cold, intolerance to heat, unexplained weight gain, unexplained weight loss, others Psychiatric: denies: anxiety, bipolar disorder, depression, hopeless, panic disorder, schizophrenia, sleepless, suicidal, others All Other Systems: Reviewed and Negative Physical Exam General Appearance: No Apparent Distress, Normal HEENT: Normal ENT Inspection, Pharynx Normal, TMs Normal Neck: Full Range of Motion, Non-Tender, Normal, Normal Inspection Respiratory: Chest Non-Tender, Lungs Clear, No Accessory Muscle Use, No Respiratory Distress, Normal Breath Sounds Cardiovascular: No Edema, No JVD, No Murmur, No Gallop, Normal Peripheral Pulses, Regular Rate/Rhythm Breast Exam: Deferred Gastrointestinal: No Organomegaly, Non Tender, No Pulsatile Mass, Normal Bowel Sounds, Soft Genitalia: Deferred Pelvic: Deferred Rectal: Deferred Extremities: No calf tenderness, Normal capillary refill, Normal inspection, Normal range of motion, Non-tender, No pedal edema Musculoskeletal : Location: Right Extremity Location: Back Apperance: Tenderness (Right CVA tenderness) Neurologic: Alert, education and outreach coordinator II-XII nml as Tested, No Motor Deficits, Normal Affect, Normal Mood, No Sensory Deficits Cerebellar Function: Normal Reflexes: Normal Skin: Dry, Normal Color, Warm Lymphatic: No Adenopathy Was a procedure done? Was a procedure done?: No Differential Diagnosis Kidney stone (Female): Musculoskeletal pain, Pyelonephritis, Renal failure, Urinary obstruction, Urolithiasis Kidney stone (Male): N/A Penile/Scrotal: N/A Urinary Problem (Male): N/A Urinary Problem (Female): Pyelonephritis, Urinary retention, UTI, Vaginitis X-Ray, Labs, Meds, VS Vital Signs Date Time Temp Pulse Resp B/P (MAP) Pulse Ox O2 Delivery O2 Flow Rate FiO2 02/16/25 11:50 98.0 73 17 106/70 (82) 99 98.0 02/16/25 09:35 97.9 77 15 105/64 100 97.9 Lab Test 02/16/25 12:14 02/16/25 11:04 Range/Units Urine Color Colorless Yellow Urine Clarity Clear Clear Urine pH 7.0 5.0-9.0 Urine Specific [place] 1.006 1.001-1.035 Urine Protein Negative Negative Urine Ketones Negative Negative Urine Blood 2+ H Negative /uL Urine Nitrite Negative Negative Urine Bilirubin Negative Negative Urine Urobilinogen Normal Negative mg/dL Urine Leukocyte Esterase Negative Negative /uL Urine RBC 17 0 - 4 /hpf Urine Microscopic WBC 5 0-5 /HPF Urine Squamous Epithelial Cells Few <5 /hpf Urine Bacteria Few H None Seen /hpf Urine Glucose Normal Normal mg/dL Urine Test Negative Negative White Blood Count 12.2 H 4.4-10.8 10^3/uL Red Blood Count 4.24 4.0-5.20 10^6/uL Hemoglobin 13.4 12.2-16.2 g/dL Hematocrit 40.4 36.0-46.0 % Mean Corpuscular Volume 95.2 80.0-100.0 fL Mean Corpuscular Hemoglobin 31.6 28.0-32.0 pg Mean Corpuscular Hemoglobin Concent 33.2 32.0-36.0 g/dL Red Cell Distribution Width 13.1 11.8-14.3 % Platelet Count 286 140-450 10^3/uL Mean Platelet Volume 9.2 6.9-10.8 fL Neutrophils (%) (Auto) 77.4 37.0-80.0 % Lymphocytes (%) (Auto) 18.0 10.0-50.0 % Monocytes (%) (Auto) 3.7 0.0-12.0 % Eosinophils (%) (Auto) 0.4 0.0-7.0 % Basophils (%) (Auto) 0.5 0.0-2.0 % Neutrophils # (Auto) 9.4 H 1.6-8.6 10 ^3/uL Lymphocytes # (Auto) 2.2 0.4-5.4 10 ^3/uL Monocytes # (Auto) 0.5 0-1.3 10 ^3/uL Eosinophils # (Auto) 0.1 0-0.8 10 ^3/uL Basophils # (Auto) 0.1 0-0.2 10 ^3/uL Nucleated Red Blood Cells 0.1 % Sodium Level 140 136-145 mmol/L Potassium Level 4.0 3.5-5.1 mmol/L Chloride Level 103 98-107 mmol/L Carbon Dioxide Level 28 20-31 mmol/L Anion Gap 9 5-15 Blood Urea Nitrogen 10 9-23 mg/dL Creatinine 0.54 L 0.550-1.02 mg/dL Glomerular Filtration Rate Calc 122 >90 mL/min BUN/Creatinine Ratio 18.5 10.0-20.0 Serum Glucose 91 74-106 mg/dL Calcium Level 9.7 8.7-10.4 mg/dL Time of 1ST Reevaluation: 11:17 Reevaluation 1ST: Unchanged Patient Education/Counseling: Diagnosis, Treatment Family Education/Counseling: No Family Present SEPSIS Sepsis Screen Date sepsis recognized/suspect: Feb 16, 2025 Time Sepsis recognized/suspect: 934 Recent Procedure: No On Antibiotic Therapy: No Respiratory Rate >20: No Heart Rate >90: No Temp<36 C (96.8 F) or >38.3 C: No SBP <90 or MAP <65 mmHG: No New Acute Mental Status Change: No Is the patient on CPAP, BIPAP,: No Vital Signs Date Time Temp Pulse Resp B/P (MAP) Pulse Ox O2 Delivery O2 Flow Rate FiO2 02/16/25 11:50 98.0 73 17 106/70 (82) 99 98.0 02/16/25 09:35 97.9 77 15 105/64 100 97.9 Laboratory Tests Test 02/16/25 11:04 White Blood Count 12.2 10^3/uL (4.4-10.8) H Departure 1 Departure Time of Disposition: 07:04 (Patient presents with concern for cystitis there is flank pain.) Impression: Primary Impression: Intractable abdominal pain Disposition: 07 LEFT AWOL/ELOPED Condition: Serious Critical Care Note Critical Care Time?: No Stability Stability form required: No Heart Score Heart Score: Heart Score Response (Comments) Value History N/A 0 EKG N/A 0 Age N/A 0 Risk Factors N/A 0 Troponin N/A 0 Total 0 I personally scribed for MICHELINE BANG MD ([email or web address]) on 02/16/25 at 10:33. Electronically submitted by Constantin Marvin [email or web address]). MICHELINE BANG MD Feb 16, 2025 10:33
[2025-02-16] MEDS: KETOROLAC TROMETH 30 MG/ML 1ML VIAL IV ONE (11:00)
[2025-02-16] MEDS: ACETAMINOPHEN 325 MG TAB PO ONE (11:02)
[2025-02-16] MEDS: ONDANSETRON ODT 4 MG TAB PO ONE (11:04)
[2025-02-16] MEDS: SODIUM CHLORIDE 0.9% 1,000 ML IV ONE (11:06)
[2025-02-16 11:32] LABS: Hematocrit 40.4 % (36.0-46.0); Hemoglobin 13.4 g/dL (12.2-16.2); Mean Corpuscular Hemoglobin 31.6 pg (28.0-32.0); Mean Corpuscular Volume 95.2 fL (80.0-100.0); Nucleated Red Blood Cells % 0.1 %
[2025-02-16 11:36] LABS: Chloride 103 mmol/L (98-107); Potassium 4.0 mmol/L (3.5-5.1); Sodium 140 mmol/L (136-145)
[2025-02-16 11:37] LABS: Anion Gap 9 (5-15); Calcium 9.7 mg/dL (8.7-10.4); Carbon Dioxide 28 mmol/L (20-31)
[2025-02-16 11:42] LABS: BUN/Creatinine Ratio 18.5 (10.0-20.0); Blood Urea Nitrogen 10 mg/dL (9-23); Glucose 91 mg/dL (74-106)
[2025-02-16 11:50] VITALS: BP 106/70; PULSE 73; RESP 17; TEMP 98; O2SAT 99
[2025-02-16 12:33] LABS: Urine Protein, UAD Negative (Negative)
== END 2025-02-16 16:24 | disposition left against medical advice (07) ==
LOC: ER 09:30
DX: R10.A1 Flank pain, right side (principal); R30.0 Dysuria; Z87.442 Personal history of urinary calculi; Z79.899 Other long term (current) drug therapy
CPT/HCPCS: 36415; 80048; 81001; 81025; 85025